=== PATIENT | female | born 1990 | race African-American/Black ===

== ENCOUNTER 2016-10-09 19:40 | Emergency (ER) | payer SELFPAY ==
[~2016-10-09] VITALS: Ht 165.1 cm; Wt 97.5 kg
[2016-10-09 20:10] LABS: BILIRUBIN,URINE NEGATIVE (NEG); GLUCOSE,URINE NEGATIVE (NEG); NITRITE,URINE NEGATIVE (NEG); PH,URINE 6.5; PROTEIN,URINE NEGATIVE (NEG-TRACE); UROBILINOGEN,URINE 0.2 mg/dL (0.2 mg/dL)
[2016-10-09 20:21] LABS: BACTERIA,URINE MODERATE /HPF (0-FEW); SQUAMOUS EPITHELIAL CELL,UR MANY /LPF
--- NOTE | 2016-10-09 21:12 | PHYS DOC ---
Past Medical History Past Medical History LMP 4 weeks ago Alcohol Use: None Adult General Chief Complaint Chief Complaint: ABDOMINAL PAIN IN HPI HPI Patient is a 26 year old female who presents with mild crampy pelvic pain past several days occasional spotting no fever nausea vomiting or diarrhea and was seen at the [facility] yesterday for a workup for same complaints. she was told labs were unremarkable that the ultrasound showed a 5 week . Review of Systems Review of Systems Constitutional: Denies fever or chills [] Eyes: Denies change in visual acuity, redness, or eye pain [] HENT: Denies nasal congestion or sore throat [] Respiratory: Denies cough or shortness of breath [] Cardiovascular: No additional information not addressed in HPI [] GI: Denies abdominal pain, nausea, vomiting, bloody stools or diarrhea [] : Denies dysuria or hematuria [] Musculoskeletal: Denies back pain or joint pain [] Integument: Denies rash or skin lesions [] Neurologic: Denies headache, focal weakness or sensory changes [] Endocrine: Denies polyuria or polydipsia [] Allergies Allergies Allergies Coded Allergies Type Severity Reaction Last Updated Verified amoxicillin Allergy Severe RASH/ HIVES 10/09/16 Yes Physical Exam Physical Exam Constitutional: Well developed, well nourished, no acute distress, non-toxic appearance. [] HENT: Normocephalic, atraumatic, bilateral external ears normal, oropharynx moist, no oral exudates, nose normal. [] Eyes: PERRLA, EOMI, conjunctiva normal, no discharge. [] Neck: Normal range of motion, no tenderness, supple, no stridor. [] Cardiovascular:Heart rate regular rhythm, no murmur [] Lungs & Thorax: Bilateral breath sounds clear to auscultation [] Abdomen: Bowel sounds normal, soft, no tenderness, no masses, no pulsatile masses. Completely nontender over the lower pelvis [] Skin: Warm, dry, no erythema, no rash. [] Back: No tenderness, no CVA tenderness. [] Extremities: No tenderness, no cyanosis, no clubbing, ROM intact, no edema. [] Neurologic: Alert and oriented X 3, normal motor function, normal sensory function, no focal deficits noted. [] Psychologic: Affect normal, judgement normal, mood normal. [] Current Patient Data Vital Signs Vital Signs Date Time Temp Pulse Resp B/P (MAP) Pulse Ox O2 Delivery O2 Flow Rate FiO2 10/09/16 19:50 98.8 96 20 173/79 (110) 100 Room Air 98.8 Lab Values Laboratory Tests Test 10/09/16 19:10 10/09/16 19:55 POC Urine HCG, Qualitative Hcg positive (Negative) Urine Collection Type Unknown Urine Color Yellow Urine Clarity Hazy Urine pH 6.5 Urine Specific [place] >=1.030 Urine Protein Negative mg/dL (NEG-TRACE) Urine Glucose (UA) Negative mg/dL (NEG) Urine Ketones (Stick) Negative mg/dL (NEG) Urine Blood Moderate (NEG) Urine Nitrite Negative (NEG) Urine Bilirubin Negative (NEG) Urine Urobilinogen Dipstick 0.2 mg/dL (0.2 mg/dL) Urine Leukocyte Esterase Trace (NEG) Urine RBC 1-2 /HPF (0-2) Urine WBC 1-4 /HPF (0-4) Urine Squamous Epithelial Cells Many /LPF Urine Bacteria Moderate /HPF (0-FEW) Urine Mucus Marked /LPF EKG EKG [] Radiology/Procedures Radiology/Procedures [] Course & Med Decision Making Course & Med Decision Making Pertinent Labs and Imaging studies reviewed. (See chart for details) Rh and quantitative hCG will be obtained tonight Outside imaging studies were obtained from [facility] which demonstrated a 5 week IUP with gestational sac and normal physiologic fluid in the pelvis and a small corpus luteal cyst in the right ovary. Rh+. [] Dragon Disclaimer Dragon Disclaimer This electronic medical record was generated, in whole or in part, using a voice recognition dictation system. Departure Departure Impression: Primary Impression: Threatened in early Additional Impression: Urinary tract infection Disposition: 01 HOME, SELF-CARE Condition: STABLE Referrals: NON,STAFF (PCP) Patient Instructions: Threatened Miscarriage, [id number], Urinary Tract Infection, [id number] Additional Instructions: Please follow-up with your personal visual and stock associate Problem Qualifiers JEWEL MCCARTY MD Oct 09, 2016 21:12
[2016-10-09 21:22] VITALS: BP 156/94
[2016-10-09] MEDS ORDERED: NITR100C62 PO (22:13)
[2016-10-09] MEDS ORDERED: ONDANSETRON ODT 4 MG TAB.RAPDIS. PO ONE (22:45)
== END 2016-10-09 22:58 | disposition home or self-care (01) ==
LOC: ER 19:40
DX: O20.0 Threatened abortion (principal); O23.41 Unspecified infection of urinary tract in pregnancy, first trimester; Z3A.01 Less than 8 weeks gestation of pregnancy; Z88.1 Allergy status to other antibiotic agents
CPT/HCPCS: 36415; 81001; 81025; 84702; 86901; 87086; 99284

== ENCOUNTER 2016-11-11 17:56 | Emergency (ER) | payer OTHER ==
[~2016-11-11] VITALS: Ht 165.1 cm; Wt 97.5 kg
[~2016-11-11 17:56] MED LIST: NITR100C62 PO
[2016-11-11 18:29] LABS: BASO # 0.1 x10^3/uL (0.0-0.2); BASO % 0 % (0-3); EOS % 0 % (0-3); HEMATOCRIT 37.3 % (36.0-47.0); HEMOGLOBIN 12.6 g/dL (12.0-15.5); LYMPH # 1.9 x10^3/uL (1.0-4.8); LYMPH % 13 % (24-48); MEAN CORPUSCULAR HEMOGLOBIN 31 pg (25-35); MEAN CORPUSCULAR HGB CONC 34 g/dL (31-37); MEAN CORPUSCULAR VOLUME 93 fL (79-100); MONO % 5 % (0-9); NEUT % 81 % (31-73); PLATELET COUNT 281 x10^3/uL (140-400); RED BLOOD COUNT 4.03 x10^6/uL (3.50-5.40); RED CELL DISTRIBUTION WIDTH 12.9 % (11.5-14.5); WHITE BLOOD COUNT 14.4 x10^3/uL (4.0-11.0)
[2016-11-11] MEDS ORDERED: METOCLOPRAMIDE HCL 10 MG/2 ML VIAL. IV ONE (18:30)
[2016-11-11] MEDS ORDERED: IV NORMAL SALINE 1000ML BAG 1,000 ML IV ONE (18:30)
[2016-11-11 18:44] LABS: CALCIUM 9.1 mg/dL (8.5-10.1); CREATININE 0.9 mg/dL (0.6-1.0); GFR 90.2; POTASSIUM 3.5 mmol/L (3.5-5.1)
[2016-11-11 18:49] LABS: ALBUMIN 3.7 g/dL (3.4-5.0); ALBUMIN/GLOBULIN RATIO 0.9 (1.0-1.7); TOTAL BILIRUBIN 0.3 mg/dL (0.2-1.0); TOTAL PROTEIN 7.8 g/dL (6.4-8.2)
--- NOTE | 2016-11-11 18:53 | PHYS DOC ---
Past Medical History Past Medical History: Anxiety, Depression, Hypertension, Migraines Past Surgical History: Appendectomy, Cholecystectomy, , Other Additional Past Surgical Histo: X2, ABDOMINAL HERNIA X2 ( CHILD) Alcohol Use: None Drug Use: Marijuana Adult General Chief Complaint Chief Complaint: ABDOMINAL PAIN IN HPI HPI Patient is a 26 year old female who presents with complaints of nausea and vomiting. Patient denied any abdominal pain except for discomfort one vomiting. Patient already had a pelvic exam today. Patient is approximately 12 weeks . Patient denies any bloody vomiting or stools. Denies any trauma. Patient states she hasn't been able to eat properly or HIDA properly secondary to vomiting. No other sick contacts. Review of Systems Review of Systems Constitutional: Denies fever or chills [] HENT: Denies nasal congestion or sore throat [] Respiratory: Denies cough or shortness of breath [] Cardiovascular: No chest pain GI: Denies abdominal pain,bloody stools or diarrhea . Yes to nausea and vomiting : Denies dysuria or hematuria . Denies vaginal bleeding or discharge Musculoskeletal: Denies back pain or joint pain [] Integument: Denies rash or skin lesions [] Neurologic: Denies headache, focal weakness or sensory changes [] All other systems reviewed and found to be negative unless otherwise Specified Current Medications Current Medications Current Medications Medications (Trade) Dose Ordered Sig/Camryn Start Time Stop Time Status Last Admin Dose Admin Metoclopramide HCl (Reglan) 10 mg 1X ONCE 11/11/16 18:30 11/11/16 18:31 DC 11/11/16 19:09 10 MG Sodium Chloride 1,000 ml @ 1,000 mls/hr 1X ONCE 11/11/16 18:30 11/11/16 19:29 DC 11/11/16 19:09 1,000 MLS/HR Allergies Allergies Allergies Coded Allergies Type Severity Reaction Last Updated Verified amoxicillin Allergy Severe RASH/ HIVES 10/09/16 Yes Physical Exam Physical Exam Constitutional: Well developed, well nourished, no acute distress, non-toxic appearance. [] HENT: Normocephalic, atraumatic, , oropharynx dry, no oral exudates, nose normal. [] Eyes: EOMI, conjunctiva normal, no discharge. [] Neck: Normal range of motion, no tenderness, trachea midline, no stridor. [] Cardiovascular:Heart rate regular rhythm, no murmur, equal pulses, normal perfusion. Lungs & Thorax: Bilateral breath sounds clear to auscultation, no tachypnea Abdomen: Bowel sounds normal, soft, no tenderness, no guarding, no rebound, no masses, no pulsatile masses. [] Skin: Warm, dry, no erythema, no rash. [] Back: No tenderness, no CVA tenderness. [] Extremities: No tenderness, no cyanosis, ROM intact, no edema. No signs of DVT Neurologic: Alert and oriented X 3, normal motor function, no focal deficits noted. [] Psychologic: Affect normal, judgement normal, mood normal. [] Current Patient Data Vital Signs Vital Signs Date Time Temp Pulse Resp B/P (MAP) Pulse Ox O2 Delivery O2 Flow Rate FiO2 11/11/16 20:00 76 120/60 (80) 99 Room Air 11/11/16 18:11 98.7 20 98.7 Lab Values Laboratory Tests Test 11/11/16 18:08 11/11/16 18:17 POC Urine HCG, Qualitative Hcg positive (Negative) White Blood Count 14.4 x10^3/uL (4.0-11.0) H Red Blood Count 4.03 x10^6/uL (3.50-5.40) Hemoglobin 12.6 g/dL (12.0-15.5) Hematocrit 37.3 % (36.0-47.0) Mean Corpuscular Volume 93 fL (79-100) Mean Corpuscular Hemoglobin 31 pg (25-35) Mean Corpuscular Hemoglobin Concent 34 g/dL (31-37) Red Cell Distribution Width 12.9 % (11.5-14.5) Platelet Count 281 x10^3/uL (140-400) Neutrophils (%) (Auto) 81 % (31-73) H Lymphocytes (%) (Auto) 13 % (24-48) L Monocytes (%) (Auto) 5 % (0-9) Eosinophils (%) (Auto) 0 % (0-3) Basophils (%) (Auto) 0 % (0-3) Neutrophils # (Auto) 11.6 x10^3uL (1.8-7.7) H Lymphocytes # (Auto) 1.9 x10^3/uL (1.0-4.8) Monocytes # (Auto) 0.8 x10^3/uL (0.0-1.1) Eosinophils # (Auto) 0.0 x10^3/uL (0.0-0.7) Basophils # (Auto) 0.1 x10^3/uL (0.0-0.2) Sodium Level 137 mmol/L (136-145) Potassium Level 3.5 mmol/L (3.5-5.1) Chloride Level 101 mmol/L (98-107) Carbon Dioxide Level 25 mmol/L (21-32) Anion Gap 11 (6-14) Blood Urea Nitrogen 12 mg/dL (7-20) Creatinine 0.9 mg/dL (0.6-1.0) Estimated GFR (Cockcroft-Gault) 90.2 BUN/Creatinine Ratio 13 (6-20) Glucose Level 103 mg/dL (70-99) H Calcium Level 9.1 mg/dL (8.5-10.1) Total Bilirubin 0.3 mg/dL (0.2-1.0) Aspartate Amino Transferase (AST) 13 U/L (15-37) L Alanine Aminotransferase (ALT) 25 U/L (14-59) Alkaline Phosphatase 44 U/L (46-116) L Total Protein 7.8 g/dL (6.4-8.2) Albumin 3.7 g/dL (3.4-5.0) Albumin/Globulin Ratio 0.9 (1.0-1.7) L Laboratory Tests 11/11/16 18:17 Laboratory Tests 11/11/16 18:17 EKG EKG 1847 69 normal sinus rhythm no STEMI[] Radiology/Procedures Radiology/Procedures [] Course & Med Decision Making Course & Med Decision Making Pertinent Labs and Imaging studies reviewed. (See chart for details) and results discussed with the patient. 2101 patient reevaluated and reexamined. Patient states she feels much better and requests discharge home. Vital signs are unremarkable. Patient has not vomited in the ED. I gave the patient strict instructions on how to use Zofran but I will also provide her with a prescription for Reglan [] Dragon Disclaimer Dragon Disclaimer This electronic medical record was generated, in whole or in part, using a voice recognition dictation system. Departure Departure Impression: Primary Impression: Dehydration Additional Impression: Vomiting as reason for care in Disposition: HOME, SELF-CARE Condition: IMPROVED Referrals: NO PCP (PCP) Patient Instructions: ABCs of , Dehydration, Adult, Nausea and Vomiting Additional Instructions: Please follow-up with your DONOR TECHNICIAN and PCP for recheck and reevaluation in 3-5 days Problem Qualifiers Michael LEMA MD Nov 11, 2016 18:53
[2016-11-11 21:00] VITALS: BP 128/68
--- NOTE | 2016-11-12 07:16 | EKG ---
[facility] [address] [place] [address] Test Date: 2016-11-11 Test Time: 18:46:03 Pat Name: AUGUSTUS CARTWRIGHT Department: Room: Gender: F Analysis Consultant: : 1990 Requested By: Michael LEMA Order Number: [id number] Reading MD: Measurements Intervals [place] Rate: 69 P: 53 CO: 132 QRS: 28 QRSD: 94 T: 29 QT: 382 QTc: 411 Interpretive Statements SINUS RHYTHM QRS(T) CONTOUR ABNORMALITY CONSIDER ANTEROLATERAL MYOCARDIAL DAMAGE RI6.01 Unconfirmed report No previous ECG available for comparison
== END 2016-11-11 22:00 | disposition home or self-care (01) ==
LOC: ER 17:56
DX: O21.9 Vomiting of pregnancy, unspecified (principal); O26.891 Other specified pregnancy related conditions, first trimester; E86.0 Dehydration; O16.1 Unspecified maternal hypertension, first trimester; F12.10 Cannabis abuse, uncomplicated; Z88.1 Allergy status to other antibiotic agents; Z3A.12 12 weeks gestation of pregnancy
CPT/HCPCS: 36415; 80053; 81025; 85025; 93005; 96361; 96374; 99285; J2765; J7030

== ENCOUNTER 2017-05-06 23:43 | Observation (INO) | payer OTHER ==
[2017-05-07] MEDS ORDERED: ACETAMINOPHEN 325 MG TABLET. PO
[2017-05-07] MEDS ORDERED: ONDANSETRON PF 4 MG/2 ML VIAL. IV
[2017-05-07] MEDS ORDERED: MAG HYDROX/ALUMINUM HYD/SIMETH 30 ML ORAL.SUSP PO
[2017-05-07 01:16] LABS: BILIRUBIN,URINE NEGATIVE (NEG); CLARITY,URINE CLOUDY; COLOR,URINE YELLOW; GLUCOSE,URINE NEGATIVE (NEG); NITRITE,URINE NEGATIVE (NEG); PROTEIN,URINE 30 mg/dL (NEG-TRACE); UROBILINOGEN,URINE 0.2 mg/dL (0.2 mg/dL)
[2017-05-07 01:25] LABS: AMORPHOUS SEDIMENT,UR PRESENT /HPF; BACTERIA,URINE MODERATE /HPF (0-FEW); RBC,URINE 0 /HPF (0-2); SQUAMOUS EPITHELIAL CELL,UR MOD /LPF
[2017-05-07 01:27] LABS: AMPHETAMINE/METHAMPHETAMINE NEG (NEG); BARBITURATES NEG (NEG); BENZODIAZEPINES POS (NEG); CANNABINOIDS POS (NEG); COCAINE NEG (NEG); ETHANOL, URINE NEG (NEG); METHADONE NEG (NEG); OPIATES POS (NEG); PHENCYCLIDINE NEG (NEG)
[2017-05-07] MEDS: IV RINGERS,LACTATED 1000ML 1,000 ML IV ×2 (02:44→05:22)
[2017-05-07] MEDS: ONDANSETRON PF 4 MG/2 ML VIAL. IV (02:58)
[2017-05-07] MEDS ORDERED: IV RINGERS,LACTATED 1000ML 1,000 ML IV (03:00)
== END 2017-05-07 10:43 | disposition home or self-care (01) ==
LOC: 3 SO LND 23:43
DX: O62.9 Abnormality of forces of labor, unspecified (principal); Z3A.35 35 weeks gestation of pregnancy
CPT/HCPCS: 80307; 81001; 87086; 96361; 96374; G0378; G0379; J2405; J7120

== ENCOUNTER 2017-06-08 10:49 | Inpatient (IN) | payer OTHER ==
[2017-06-08 11:21] LABS: BILIRUBIN,URINE NEGATIVE (NEG); CLARITY,URINE CLEAR; COLOR,URINE YELLOW; GLUCOSE,URINE NEGATIVE (NEG); NITRITE,URINE NEGATIVE (NEG); PH,URINE 6.5; PROTEIN,URINE 30 mg/dL (NEG-TRACE); UROBILINOGEN,URINE 0.2 mg/dL (0.2 mg/dL)
[2017-06-08 11:28] LABS: BARBITURATES NEG (NEG); BENZODIAZEPINES POS (NEG); CANNABINOIDS POS (NEG); COCAINE NEG (NEG); METHADONE NEG (NEG); OPIATES POS (NEG); PHENCYCLIDINE NEG (NEG)
[2017-06-08 11:29] LABS: AMPHETAMINE/METHAMPHETAMINE NEG (NEG); ETHANOL, URINE NEG (NEG)
[2017-06-08 11:53] LABS: ADD MAN DIFF? NO
[2017-06-08 12:09] LABS: BASO # 0.1 x10^3/uL (0.0-0.2); BASO % 1 % (0-3); EOS % 0 % (0-3); HEMOGLOBIN 11.4 g/dL (12.0-15.5); LYMPH # 2.3 x10^3/uL (1.0-4.8); LYMPH % 19 % (24-48); MEAN CORPUSCULAR HEMOGLOBIN 32 pg (25-35); MEAN CORPUSCULAR HGB CONC 35 g/dL (31-37); MEAN CORPUSCULAR VOLUME 92 fL (79-100); MONO # 0.8 x10^3/uL (0.0-1.1); MONO % 7 % (0-9); NEUT # 9.1 x10^3uL (1.8-7.7); NEUT % 74 % (31-73); PLATELET COUNT 238 x10^3/uL (140-400); RED CELL DISTRIBUTION WIDTH 14.3 % (11.5-14.5); WHITE BLOOD COUNT 12.4 x10^3/uL (4.0-11.0)
[2017-06-08] MEDS: CLINDAMYCIN 900MG PREMIX 50 ML IV (12:37)
[2017-06-08] MEDS: IV RINGERS,LACTATED 1000ML 1,000 ML IV ×2 (12:37→20:48)
[2017-06-08] MEDS: CITRIC ACID/SODIUM CITRATE 30 ML SOLUTION. PO (12:49)
[2017-06-08] MEDS ORDERED: ONDANSETRON PF 4 MG/2 ML VIAL. (12:56)
[2017-06-08] MEDS ORDERED: PHENYLEPHRINE in 0.9% NACL PF 1 MG/10 ML SYRINGE. IV ×2 (12:56→13:47)
[2017-06-08] MEDS ORDERED: OXYTOCIN 10 UNIT/ML VIAL. ×2 (12:56→14:06)
[2017-06-08] MEDS ORDERED: DEXAMETHASONE SOD PHOS 20 MG/5 ML VIAL. (12:56)
[2017-06-08] MEDS ORDERED: FAMOTIDINE 20 MG/2 ML VIAL (12:56)
[2017-06-08] MEDS ORDERED: METOCLOPRAMIDE HCL 10 MG/2 ML VIAL. (12:56)
[2017-06-08] MEDS ORDERED: MORPHINE PF 5 MG/10 ML VIAL. (12:56)
[2017-06-08] MEDS ORDERED: fentaNYL PF VIAL 100 MCG/2 ML VIAL (12:57)
[2017-06-08] MEDS ORDERED: miSOPROStol 200MCG TAB 200 MCG TABLET (13:52)
[2017-06-08] MEDS ORDERED: diphenhydrAMINE ORAL ELIXIR 12.5 MG/5 ML ML PO (14:45)
[2017-06-08] MEDS ORDERED: ZOLPIDEM 5 MG TABLET. PO (14:45)
[2017-06-08] MEDS ORDERED: 0.9 % SODIUM CHLORIDE 10 ML DISP.SYRIN. IV (14:45)
[2017-06-08] MEDS ORDERED: OXYTOCIN 30 UNIT/500 ML PREMIX 500 ML IV (14:45)
[2017-06-08] MEDS ORDERED: ONDANSETRON PF 4 MG/2 ML VIAL. IV (14:45)
[2017-06-08] MEDS ORDERED: MAG HYDROX/ALUMINUM HYD/SIMETH 30 ML ORAL.SUSP PO (14:45)
[2017-06-08] MEDS: KETOROLAC 30 MG/ML INJ. IV (15:26)
[2017-06-08] MEDS: miSOPROStol 200MCG TAB 200 MCG TABLET PR (15:26)
[2017-06-08] MEDS: FERROUS SULFATE 325 MG TABLET. PO (17:00)
[2017-06-09] MEDS: KETOROLAC 30 MG/ML INJ. IV (05:55)
[2017-06-09 06:15] LABS: BASO % 0 % (0-3); EOS % 0 % (0-3); HEMATOCRIT 25.4 % (36.0-47.0); HEMOGLOBIN 8.6 g/dL (12.0-15.5); LYMPH # 1.5 x10^3/uL (1.0-4.8); LYMPH % 9 % (24-48); MEAN CORPUSCULAR HEMOGLOBIN 31 pg (25-35); MEAN CORPUSCULAR HGB CONC 34 g/dL (31-37); MEAN CORPUSCULAR VOLUME 92 fL (79-100); MONO # 1.3 x10^3/uL (0.0-1.1); MONO % 8 % (0-9); NEUT # 13.9 x10^3uL (1.8-7.7); NEUT % 83 % (31-73); PLATELET COUNT 208 x10^3/uL (140-400); RED BLOOD COUNT 2.77 x10^6/uL (3.50-5.40); RED CELL DISTRIBUTION WIDTH 14.1 % (11.5-14.5); WHITE BLOOD COUNT 16.8 x10^3/uL (4.0-11.0)
[2017-06-09 06:33] LABS: ADD MAN DIFF? YES
[2017-06-09 07:50] LABS: RPR Negative (Non Reactive)
[2017-06-09] MEDS ORDERED: BENZOCAINE 20% TOPICAL AEROSOL SPRAY 57GM CAN. TP (08:30)
[2017-06-09] MEDS: FERROUS SULFATE 325 MG TABLET. PO ×2 (08:40→18:28)
[2017-06-09] MEDS: DOCUSATE SODIUM 100 MG CAPSULE. PO (08:40)
[2017-06-09] MEDS: oxyCODONE/APAP 5/325 1 TAB TABLET PO ×4 (08:41→21:57)
[2017-06-09 11:52] LABS: % BANDS 4 % (0-9); % LYMPHS 8 % (24-48); % MONOS 9 % (0-10); % SEGS 79 % (35-66); PLT ESTIMATE ADEQUATE (ADEQUATE)
[2017-06-09] MEDS: SIMETHICONE 80 MG TAB.CHEW PO (13:06)
[2017-06-09] MEDS: IBUPROFEN 800 MG TABLET. PO (14:31)
[2017-06-10] MEDS: oxyCODONE/APAP 5/325 1 TAB TABLET PO ×4 (03:35→20:18)
[2017-06-10] MEDS: IBUPROFEN 800 MG TABLET. PO ×2 (08:11→20:18)
[2017-06-10] MEDS: FERROUS SULFATE 325 MG TABLET. PO ×2 (08:12→15:28)
[2017-06-10] MEDS: DOCUSATE SODIUM 100 MG CAPSULE. PO ×2 (08:12→15:28)
[2017-06-10] MEDS: SIMETHICONE 80 MG TAB.CHEW PO (09:42)
[2017-06-10] MEDS: DIPHTH,PERTUSS(ACELL),TET TOX 0.5 ML DISP.SYRIN. VAX IM (15:31)
[2017-06-11] MEDS: IBUPROFEN 800 MG TABLET. PO ×3 (04:25→20:56)
[2017-06-11] MEDS: oxyCODONE/APAP 5/325 1 TAB TABLET PO ×4 (04:26→20:57)
[2017-06-11] MEDS: DOCUSATE SODIUM 100 MG CAPSULE. PO ×2 (09:29→20:57)
[2017-06-11] MEDS: MAGNESIUM HYDROXIDE 2,400 MG/30 ML ORAL.SUSP. PO (13:34)
[2017-06-11] MEDS: BISACODYL 10 MG SUPP.RECT. PR (13:34)
[2017-06-11] MEDS: FERROUS SULFATE 325 MG TABLET. PO (20:58)
[2017-06-12] MEDS: MAGNESIUM HYDROXIDE 2,400 MG/30 ML ORAL.SUSP. PO (05:58)
[2017-06-12] MEDS: IBUPROFEN 800 MG TABLET. PO (05:58)
[2017-06-12] MEDS: oxyCODONE/APAP 5/325 1 TAB TABLET PO ×2 (05:59→13:23)
[2017-06-12] MEDS: BISACODYL 10 MG SUPP.RECT. PR (09:35)
[2017-06-12] MEDS: DOCUSATE SODIUM 100 MG CAPSULE. PO (09:35)
[2017-06-12] MEDS: FERROUS SULFATE 325 MG TABLET. PO (09:35)
[2017-06-12] MEDS ORDERED: MAGNESIUM CITRATE 296 ML SOLUTION. PO (12:45)
[2017-06-12] MEDS: SIMETHICONE 80 MG TAB.CHEW PO (13:24)
[2017-06-12] MEDS: DOCUSATE SODIUM 283 MG/5 ML ENEMA. PR (13:24)
== END 2017-06-12 17:45 | disposition home or self-care (01) | DRG 765 ==
LOC: 3 SO LND 10:49 → 3 NORTH 17:00 → 3 SO LND 06-09 16:11 → 3 NORTH 06-09 16:15
PROC: 0UB70ZZ Excision of Bilateral Fallopian Tubes, Open Approach (ICD-10-PCS; principal; 2017-06-08)
PROC: 10D00Z1 Extraction of Products of Conception, Low, Open Approach (ICD-10-PCS; 2017-06-08)
DX: O34.211 Maternal care for low transverse scar from previous cesarean delivery (principal); Z68.42 Body mass index [BMI] 45.0-49.9, adult; E66.9 Obesity, unspecified; Z37.0 Single live birth; O99.214 Obesity complicating childbirth; Z3A.40 40 weeks gestation of pregnancy; Z30.2 Encounter for sterilization; Z88.8 Allergy status to other drugs, medicaments and biological substances
CPT/HCPCS: 36415; 80307; 81003; 85007; 85025; 86593; 86850; 86900; 86901; 87071; 87075; 87205; 90715; C1781; J1100; J1885; J2270; J2370; J2405; J2590; J2765; J3010; J3490; J7120; Q0111; S0028

== ENCOUNTER 2019-01-10 16:34 | Emergency (ER) | payer OTHER ==
[~2019-01-10] VITALS: Ht 167.6 cm; Wt 131.5 kg
[2019-01-10] MEDS ORDERED: DEXAMETHASONE 4 MG TABLET PO STA (17:04)
--- NOTE | 2019-01-10 17:09 | PHYS DOC ---
Past Medical History Past Medical History: Anxiety, Depression, Hypertension, Migraines Past Surgical History: Appendectomy, Cholecystectomy, , Other Additional Past Surgical Histo: X2, ABDOMINAL HERNIA X2 ( CHILD) Alcohol Use: None Drug Use: Marijuana Adult General Chief Complaint Chief Complaint: HEADACHE HPI HPI Patient is a 28 year old female who presents with symptoms. The patient has sore throat, cough, headache, nausea, vomiting that started 3 days ago. She states she is not keeping fluids at home. She rates her pain as 10 out of 10 in severity. The patient also has expiratory wheezing. Review of Systems Review of Systems Constitutional: Reports fever or chills [] Eyes: Denies change in visual acuity, redness, or eye pain [] HENT: Denies nasal congestion or sore throat [] Respiratory: Reports cough and shortness of breath [] Cardiovascular: No additional information not addressed in HPI [] GI: Reports nausea, and vomiting, Denies abdominal pain,bloody stools or diarrhea [] : Denies dysuria or hematuria [] Musculoskeletal: Denies back pain or joint pain [] Integument: Denies rash or skin lesions [] Neurologic: Denies headache, focal weakness or sensory changes [] Endocrine: Denies polyuria or polydipsia [] Complete systems were reviewed and found to be within normal limits, except as documented in this note. Current Medications Current Medications Current Medications Medications (Trade) Dose Ordered Sig/Camryn Start Time Stop Time Status Last Admin Dose Admin Acetaminophen (Tylenol) 1,000 mg 1X ONCE 01/10/19 19:00 01/10/19 19:01 DC 01/10/19 19:06 1,000 MG Albuterol/ Ipratropium (Duoneb) 3 ml 1X ONCE 01/10/19 17:15 01/10/19 17:16 DC 01/10/19 17:32 3 ML Ceftriaxone Sodium (Rocephin) 1 gm 1X ONCE 01/10/19 19:00 01/10/19 19:01 DC 01/10/19 19:07 1 GM Dexamethasone (Decadron) 10 mg 1X STAT 01/10/19 17:04 01/10/19 17:06 DC 01/10/19 19:14 10 MG Ketorolac Tromethamine (Toradol 15mg Vial) 10 mg 1X ONCE 01/10/19 19:00 01/10/19 19:01 DC 01/10/19 19:07 10 MG Ondansetron HCl (Zofran) 4 mg 1X ONCE 01/10/19 17:15 01/10/19 17:16 DC 01/10/19 19:07 4 MG Potassium Chloride (Klor-Con) 60 meq 1X ONCE 01/10/19 19:00 01/10/19 19:01 DC 01/10/19 19:07 60 MEQ Sodium Chloride 1,000 ml @ 1,000 mls/hr 1X STAT 01/10/19 18:47 01/10/19 19:46 Allergies Allergies Allergies Coded Allergies Type Severity Reaction Last Updated Verified amoxicillin Allergy Severe RASH/ HIVES 10/09/16 Yes Physical Exam Physical Exam Constitutional: Well developed, well nourished, no acute distress, non-toxic appearance. [] HENT: Normocephalic, atraumatic, bilateral external ears normal, oropharynx moist, no oral exudates, nose normal. [] Eyes: PERRLA, EOMI, conjunctiva normal, no discharge. [] Neck: Normal range of motion, no tenderness, supple, no stridor. [] Cardiovascular:Heart rate regular rhythm, no murmur [] Lungs & Thorax: Bilateral breath sounds have diffused expiratory wheezes throughout. Abdomen: Bowel sounds normal, soft, no tenderness, no masses, no pulsatile masses. [] Skin: Warm, dry, no erythema, no rash. [] Back: No tenderness, no CVA tenderness. [] Extremities: No tenderness, no cyanosis, no clubbing, ROM intact, no edema. [] Neurologic: Alert and oriented X 3, normal motor function, normal sensory function, no focal deficits noted. [] Psychologic: Affect normal, judgement normal, mood normal. [] Current Patient Data Vital Signs Vital Signs Date Time Temp Pulse Resp B/P (MAP) Pulse Ox O2 Delivery O2 Flow Rate FiO2 01/10/19 17:49 103.0 110 144/82 (102) 95 Room Air 103.0 Lab Values Laboratory Tests Test 01/10/19 16:56 01/10/19 17:02 01/10/19 17:46 01/10/19 17:55 Urine Color [place] Urine Clarity Clear Urine pH 6.0 Urine Specific [place] >=1.030 Urine Protein 30 mg/dL (NEG-TRACE) Urine Glucose (UA) Negative mg/dL (NEG) Urine Ketones (Stick) Negative mg/dL (NEG) Urine Blood Large (NEG) Urine Nitrite Positive (NEG) Urine Bilirubin Negative (NEG) Urine Urobilinogen Dipstick 1.0 mg/dL (0.2 mg/dL) Urine Leukocyte Esterase Negative (NEG) Urine RBC Tntc /HPF (0-2) Urine WBC 5-10 /HPF (0-4) Urine Squamous Epithelial Cells Occ /LPF Urine Bacteria Many /HPF (0-FEW) POC Urine HCG, Qualitative Hcg negative (Negative) Influenza Type A Antigen Negative (NEGATIVE) Influenza Type B Antigen Positive (NEGATIVE) White Blood Count 5.5 x10^3/uL (4.0-11.0) Red Blood Count 3.88 x10^6/uL (3.50-5.40) Hemoglobin 10.9 g/dL (12.0-15.5) L Hematocrit 32.7 % (36.0-47.0) L Mean Corpuscular Volume 84 fL (79-100) Mean Corpuscular Hemoglobin 28 pg (25-35) Mean Corpuscular Hemoglobin Concent 33 g/dL (31-37) Red Cell Distribution Width 14.3 % (11.5-14.5) Platelet Count 177 x10^3/uL (140-400) Neutrophils (%) (Auto) 77 % (31-73) H Lymphocytes (%) (Auto) 13 % (24-48) L Monocytes (%) (Auto) 10 % (0-9) H Eosinophils (%) (Auto) 0 % (0-3) Basophils (%) (Auto) 0 % (0-3) Neutrophils # (Auto) 4.3 x10^3/uL (1.8-7.7) Lymphocytes # (Auto) 0.7 x10^3/uL (1.0-4.8) L Monocytes # (Auto) 0.5 x10^3/uL (0.0-1.1) Eosinophils # (Auto) 0.0 x10^3/uL (0.0-0.7) Basophils # (Auto) 0.0 x10^3/uL (0.0-0.2) Sodium Level 141 mmol/L (136-145) Potassium Level 2.9 mmol/L (3.5-5.1) *L Chloride Level 104 mmol/L (98-107) Carbon Dioxide Level 26 mmol/L (21-32) Anion Gap 11 (6-14) Blood Urea Nitrogen 5 mg/dL (7-20) L Creatinine 0.9 mg/dL (0.6-1.0) Estimated GFR (Cockcroft-Gault) 89.0 BUN/Creatinine Ratio 6 (6-20) Glucose Level 129 mg/dL (70-99) H Lactic Acid Level 2.1 mmol/L (0.4-2.0) H Calcium Level 8.3 mg/dL (8.5-10.1) L Magnesium Level 1.3 mg/dL (1.8-2.4) L Total Bilirubin 0.3 mg/dL (0.2-1.0) Aspartate Amino Transferase (AST) 48 U/L (15-37) H Alanine Aminotransferase (ALT) 45 U/L (14-59) Alkaline Phosphatase 75 U/L (46-116) Total Protein 7.3 g/dL (6.4-8.2) Albumin 3.2 g/dL (3.4-5.0) L Albumin/Globulin Ratio 0.8 (1.0-1.7) L Procalcitonin < 0.10 ng/mL (0.00-0.10) Laboratory Tests 01/10/19 17:55 Laboratory Tests 01/10/19 17:55 EKG EKG [] Radiology/Procedures Radiology/Procedures [] Course & Med Decision Making Course & Med Decision Making Pertinent Labs and Imaging studies reviewed. (See chart for details) Will get flu, labs, chest x-ray, and give supportive care. Flu is positive. Magnesium is 1.3 (will replace magnesium), potassium is 2.9 (gave 60 meq of potassium). Urine shows nitrates (will give rocephin). Lactic is 2.1 (likely from dehydration). Patient feels better after treatment. Will d/c home with Prednisone, Zofran, and Keflex. I gave return precautions the patient to return if she starts feeling worse or is unable to keep fluids down. Dragon Disclaimer Dragon Disclaimer This electronic medical record was generated, in whole or in part, using a voice recognition dictation system. Departure Departure Impression: Primary Impression: Influenza B Additional Impressions: Influenzal bronchitis Hypomagnesemia Urinary tract infection Hypokalemia Disposition: 01 HOME, SELF-CARE Condition: STABLE Referrals: MARYAM PATEL MD (PCP) Patient Instructions: Hypokalemia, Hypomagnesemia, Urinary Tract Infection Additional Instructions: Thank you for visiting [facility]. We appreciate you trusting us with your care. If any additional problems come up don't hesitate to return to visit us. Please follow up with your primary care provider so they can plan additional care if needed and know about the problem that you had. If symptoms worsen come back to the Emergency Department. Any concerning symptoms that start such as chest pain, shortness of air, weakness or numbness on one side of the body, running high fevers or any other concerning symptoms return to the ER. Please fill your medications at any pharmacy and follow the prescription instructions. You have been prescribed an antibiotic today to help fight your infection. Please take all of the antibiotic as directed. If after 48 hours the infection is not improving, please return for more care. If the infection worsens, return to ER for additional care. Please return to the ER if you're unable to keep fluids home at home. Scripts Prednisone (PREDNISONE) 20 Mg Tablet 2 TAB PO DAILY for 5 Days, #10 TAB Prov: SHIRAZ TAMAYO APRN 01/10/19 Ondansetron (ONDANSETRON ODT) 4 Mg Tab.rapdis 1 TAB PO PRN Q6-8HRS PRN for NAUSEA, #16 TAB Prov: SHIRAZ TAMAYO APRN 01/10/19 Cephalexin (KEFLEX) 500 Mg Capsule 1 CAP PO BID for 7 Days, #14 CAP 0 Refills Prov: SHIRAZ TAMAYO APRN 01/10/19 Problem Qualifiers Additional Impressions: Urinary tract infection Urinary tract infection type: acute cystitis Hematuria presence: with hematuria Qualified Codes: N30.01 - Acute cystitis with hematuria SHIRAZ TAMAYO APRN Jan 10, 2019 17:08
[2019-01-10] MEDS ORDERED: IV NORMAL SALINE 1000ML BAG 1,000 ML IV ONE (17:15)
[2019-01-10] MEDS ORDERED: ONDANSETRON PF 4 MG/2 ML VIAL. IV ONE (17:15)
[2019-01-10] MEDS ORDERED: IPRATRPIUM/ALBUTEROL 0.5/2.5MG 3 ML NEBU. NEB ONE (17:15)
[2019-01-10 18:13] LABS: BASO % 0 % (0-3); EOS % 0 % (0-3); HEMATOCRIT 32.7 % (36.0-47.0); HEMOGLOBIN 10.9 g/dL (12.0-15.5); LYMPH # 0.7 x10^3/uL (1.0-4.8); LYMPH % 13 % (24-48); MEAN CORPUSCULAR HEMOGLOBIN 28 pg (25-35); MEAN CORPUSCULAR HGB CONC 33 g/dL (31-37); MEAN CORPUSCULAR VOLUME 84 fL (79-100); MONO # 0.5 x10^3/uL (0.0-1.1); MONO % 10 % (0-9); NEUT # 4.3 x10^3/uL (1.8-7.7); NEUT % 77 % (31-73); PLATELET COUNT 177 x10^3/uL (140-400); RED BLOOD COUNT 3.88 x10^6/uL (3.50-5.40); RED CELL DISTRIBUTION WIDTH 14.3 % (11.5-14.5); WHITE BLOOD COUNT 5.5 x10^3/uL (4.0-11.0)
[2019-01-10 18:14] LABS: BILIRUBIN,URINE NEGATIVE (NEG); CLARITY,URINE CLEAR; COLOR,URINE AMBER; NITRITE,URINE POSITIVE (NEG); PROTEIN,URINE 30 mg/dL (NEG-TRACE)
[2019-01-10 18:26] LABS: BACTERIA,URINE MANY /HPF (0-FEW); RBC,URINE TNTC /HPF (0-2); SQUAMOUS EPITHELIAL CELL,UR OCC /LPF
[2019-01-10 18:27] LABS: ALBUMIN 3.2 g/dL (3.4-5.0); ALBUMIN/GLOBULIN RATIO 0.8 (1.0-1.7); CALCIUM 8.3 mg/dL (8.5-10.1); CREATININE 0.9 mg/dL (0.6-1.0); MAGNESIUM 1.3 mg/dL (1.8-2.4); TOTAL BILIRUBIN 0.3 mg/dL (0.2-1.0); TOTAL PROTEIN 7.3 g/dL (6.4-8.2)
[2019-01-10 18:33] LABS: POTASSIUM 2.9 mmol/L (3.5-5.1)
[2019-01-10 18:39] LABS: INFLUENZA A PATIENT NEGATIVE (NEGATIVE)
[2019-01-10 18:40] LABS: INFLUENZA B PATIENT POSITIVE (NEGATIVE)
[2019-01-10] MEDS ORDERED: IV NORMAL SALINE 1000ML BAG 1,000 ML IV STA (18:47)
[2019-01-10] MEDS ORDERED: KETOROLAC 15 MG/ML VIAL. IV ONE (19:00)
[2019-01-10] MEDS ORDERED: ACETAMINOPHEN 500 MG TABLET PO ONE (19:00)
[2019-01-10] MEDS ORDERED: POTASSIUM CHLORIDE 20 MEQ TABLET.ER. PO ONE (19:00)
[2019-01-10] MEDS ORDERED: cefTRIAXone IV Push 1 GM VIAL. IVP ONE (19:00)
[2019-01-10] MEDS ORDERED: MAGNESIUM SULFATE 1GM 100 ML IV STA (19:24)
[2019-01-10] MEDS ORDERED: ONDA4TAB12 PO (19:33)
[2019-01-10] MEDS ORDERED: CEPH-264 PO (19:33)
--- NOTE | 2019-01-10 19:36 | RAD ---
PA and lateral chest radiograph 01/10/2019 CLINICAL HISTORY: Cough and fever. PA and lateral digital radiographs of the chest were obtained. Comparison study is dated 01/27/2016. The cardiac and mediastinal silhouettes are within normal limits in size and configuration. No acute pulmonary infiltrate is seen. No pleural effusion or pneumothorax is noted. The osseous structures are grossly intact. IMPRESSION: No acute abnormality is seen. Electronically signed by: López Grimm MD (01/10/2019 7:33 PM) [facility]
[2019-01-10] MEDS ORDERED: PRED20TA PO (19:45)
[2019-01-10 20:09] VITALS: BP 173/81
== END 2019-01-10 20:32 | disposition home or self-care (01) ==
LOC: ER 16:34
DX: J10.1 Influenza due to other identified influenza virus with other respiratory manifestations (principal); J40 Bronchitis, not specified as acute or chronic; N30.01 Acute cystitis with hematuria; E87.6 Hypokalemia; E83.42 Hypomagnesemia; G43.909 Migraine, unspecified, not intractable, without status migrainosus; I10 Essential (primary) hypertension; F41.9 Anxiety disorder, unspecified; F32.9 Major depressive disorder, single episode, unspecified; Z90.89 Acquired absence of other organs; Z90.49 Acquired absence of other specified parts of digestive tract; Z98.890 Other specified postprocedural states; Z88.1 Allergy status to other antibiotic agents
CPT/HCPCS: 36415; 71046; 80053; 81001; 81025; 83605; 83735; 84145; 85025; 87086; 87804; 94640; 96365; 96375; 99285; J0696; J1885; J2405; J3475; J7030; J7620; J8540; 87186

== ENCOUNTER 2020-05-22 23:20 | Emergency (ER) | payer SELFPAY ==
[~2020-05-22] VITALS: Ht 167.6 cm; Wt 159.1 kg
[~2020-05-22 23:20] MED LIST changes: +CEPH-264 PO; +ONDA4TAB12 PO; +PRED20TA PO
[2020-05-23] VITALS: BP 139/83
--- NOTE | 2020-05-23 00:09 | EKG ---
[facility] [address] [place] [address] Test Date: 2020-05-22 Test Time: 23:41:27 Pat Name: AUGUSTUS CARTWRIGHT Department: Room: Gender: F Transplant Surgeon: : 1990 Requested By: JENNIFER KENDALL Order Number: [id number] Reading MD: Measurements Intervals [place] Rate: 76 P: 39 [place]: 130 QRS: 23 QRSD: 94 T: 18 QT: 354 QTc: 402 Interpretive Statements SINUS RHYTHM NO SPECIFIC ECG ABNORMALITIES RI6.01 No previous ECG available for comparison
[2020-05-23 00:48] LABS: BASO # 0.1 x10^3/uL (0.0-0.2); BASO % 1 % (0-3); EOS % 1 % (0-3); HEMATOCRIT 34.2 % (36.0-47.0); HEMOGLOBIN 11.1 g/dL (12.0-15.5); LYMPH # 1.8 x10^3/uL (1.0-4.8); LYMPH % 17 % (24-48); MEAN CORPUSCULAR HEMOGLOBIN 26 pg (25-35); MEAN CORPUSCULAR HGB CONC 33 g/dL (31-37); MEAN CORPUSCULAR VOLUME 81 fL (79-100); MONO # 0.6 x10^3/uL (0.0-1.1); MONO % 6 % (0-9); NEUT % 76 % (31-73); PLATELET COUNT 363 x10^3/uL (140-400); RED BLOOD COUNT 4.23 x10^6/uL (3.50-5.40); RED CELL DISTRIBUTION WIDTH 15.5 % (11.5-14.5); WHITE BLOOD COUNT 10.5 x10^3/uL (4.0-11.0)
--- NOTE | 2020-05-23 00:53 | RAD ---
XR CHEST 1V History: Reason: palpitations / Spl. Instructions: / History: Comparison: January 10, 2019 Findings: No consolidation or pleural effusion. Normal heart size. No pneumothorax. Impression: 1. No acute cardiopulmonary process. Electronically signed by: Yobani Strauss DO (05/23/2020 12:50 AM) [facility] [place]
[2020-05-23 01:07] LABS: CREATININE 0.8 mg/dL (0.6-1.0); GFR 100.6; POTASSIUM 4.2 mmol/L (3.5-5.1)
[2020-05-23 01:08] LABS: PREG TEST PT QUAL NEGATIVE (NEG)
[2020-05-23 01:13] LABS: ALBUMIN 3.5 g/dL (3.4-5.0); ALBUMIN/GLOBULIN RATIO 0.7 (1.0-1.7); MAGNESIUM 1.9 mg/dL (1.8-2.4); TOTAL BILIRUBIN 0.3 mg/dL (0.2-1.0); TOTAL PROTEIN 8.4 g/dL (6.4-8.2)
--- NOTE | 2020-05-23 01:27 | PHYS DOC ---
Past Medical History Past Medical History: Other Additional Past Medical Histor: palpitations Past Surgical History: No Surgical History Additional Past Surgical Histo: X2, ABDOMINAL HERNIA X2 ( CHILD) Smoking Status: Never Smoker Alcohol Use: None Drug Use: Marijuana General Adult EDM: Chief Complaint: Palpitations HPI: HPI: 30-year-old obese female presents the ED with complaints of palpitations for the past year, states for the past 2 days she is having nonradiating, intermittent "stinging chest pain, heart is beating weird," every other hour. Reports she has been addicted to opioids after tramadol was prescribed for back pain. [facility] she has been sniffing heroin for the past 7 months after failed Suboxone use. Also injects heroin into both antecubital fossas and randomly into her chest wall. Denies any cocaine or methamphetamine abuse. No associated syncope. Takes no routine medications. Has no primary care physician. No personal or family history of AAA, AAD, CTD (ehlos danlos or marfans), cardiac arrhythmias (need for AICD), CAD, sudden or unexplainable (under 50 years of age or with exertion), or clotting disorders. Review of Systems: Review of Systems: Constitutional: Denies fever or chills. [] Eyes: Denies change in visual acuity. [] HENT: Denies nasal congestion or sore throat. [] Respiratory: Denies cough or shortness of breath. [] Cardiovascular: Denies hemoptysis, syncope or edema. [] GI: Denies abdominal pain, nausea, vomiting, bloody stools or diarrhea. [] : Denies dysuria or vaginal bleeding Musculoskeletal: Denies back pain or joint pain. [] Integument: Denies rash or diaphoresis Neurologic: Denies headache, focal weakness or sensory changes. [] Endocrine: Denies polyuria or polydipsia. [] Lymphatic: Denies swollen glands. [] Psychiatric: Denies depression or anxiety. [] Heart Score: C/O Chest Pain: Yes HEART Score for Chest Pain: HEART Score for Chest Pain Response (Comments) Value History Slighlty/Non-Suspicious 0 ECG Normal 0 Age < 45 0 Risk Factors 1 or 2 Risk Factors 1 Troponin < Normal Limit 0 Total 1 Risk Factors: Risk Factors: DM, Current or recent (<one month) smoker, HTN, HLP, family history of CAD, obesity. Risk Scores: Score 0 - 3: 2.5% MACE over next 6 weeks - Discharge Home Score 4 - 6: 20.3% MACE over next 6 weeks - Admit for Clinical Observation Score 7 - 10: 72.7% MACE over next 6 weeks - Early Invasive Strategies Allergies: Allergies: Allergies Coded Allergies Type Severity Reaction Last Updated Verified amoxicillin Allergy Severe RASH/ HIVES 10/09/16 Yes Physical Exam: PE: Constitutional: Well developed, well nourished, no acute distress, non-toxic appearance, obese HENT: Normocephalic, atraumatic, Eyes: EOMI, conjunctiva normal, no discharge. Neck: Normal range of motion, supple, Cardiovascular: S1/2 present, regular rhythm, chest wall with no recent scabs/skin popping lesions or erythema/rash Lungs & Thorax: Speaking in full sentences, bilateral equal chest rise, no tachypnea or increased work of breathing Abdomen: soft, no tenderness, Skin: Warm, dry, no erythema, no rash. [] Extremities: No tenderness, no cyanosis, 1 area of scar tissue < 0.5cm over le ft antecubital fossa with no infection/hyperpigmented brown tissue, no IV track trevino over right antecubital fossa Neurologic: Alert and oriented X 3, normal motor function, normal sensory function, no focal deficits noted. [] Psychologic: Affect normal, judgement normal, mood normal-very talkative Current Patient Data: Labs: Laboratory Tests Test 05/23/20 00:30 White Blood Count 10.5 x10^3/uL (4.0-11.0) Red Blood Count 4.23 x10^6/uL (3.50-5.40) Hemoglobin 11.1 g/dL (12.0-15.5) L Hematocrit 34.2 % (36.0-47.0) L Mean Corpuscular Volume 81 fL (79-100) Mean Corpuscular Hemoglobin 26 pg (25-35) Mean Corpuscular Hemoglobin Concent 33 g/dL (31-37) Red Cell Distribution Width 15.5 % (11.5-14.5) H Platelet Count 363 x10^3/uL (140-400) Neutrophils (%) (Auto) 76 % (31-73) H Lymphocytes (%) (Auto) 17 % (24-48) L Monocytes (%) (Auto) 6 % (0-9) Eosinophils (%) (Auto) 1 % (0-3) Basophils (%) (Auto) 1 % (0-3) Neutrophils # (Auto) 8.0 x10^3/uL (1.8-7.7) H Lymphocytes # (Auto) 1.8 x10^3/uL (1.0-4.8) Monocytes # (Auto) 0.6 x10^3/uL (0.0-1.1) Eosinophils # (Auto) 0.0 x10^3/uL (0.0-0.7) Basophils # (Auto) 0.1 x10^3/uL (0.0-0.2) Sodium Level 139 mmol/L (136-145) Potassium Level 4.2 mmol/L (3.5-5.1) Chloride Level 102 mmol/L (98-107) Carbon Dioxide Level 30 mmol/L (21-32) Anion Gap 7 (6-14) Blood Urea Nitrogen 5 mg/dL (7-20) L Creatinine 0.8 mg/dL (0.6-1.0) Estimated GFR (Cockcroft-Gault) 100.6 BUN/Creatinine Ratio 6 (6-20) Glucose Level 98 mg/dL (70-99) Calcium Level 9.0 mg/dL (8.5-10.1) Magnesium Level 1.9 mg/dL (1.8-2.4) Total Bilirubin 0.3 mg/dL (0.2-1.0) Aspartate Amino Transferase (AST) 17 U/L (15-37) Alanine Aminotransferase (ALT) 24 U/L (14-59) Alkaline Phosphatase 69 U/L (46-116) Troponin I Quantitative < 0.017 ng/mL (0.000-0.055) Total Protein 8.4 g/dL (6.4-8.2) H Albumin 3.5 g/dL (3.4-5.0) Albumin/Globulin Ratio 0.7 (1.0-1.7) L Serum Test, Qualitative Negative (NEG) Laboratory Tests 05/23/20 00:30 Laboratory Tests 05/23/20 00:30 Vital Signs: Vital Signs Date Time Temp Pulse Resp B/P (MAP) Pulse Ox O2 Delivery O2 Flow Rate FiO2 05/23/20 00:00 98.7 94 18 139/83 (101) 99 Room Air 98.7 EKG: EKG: Sinus rhythm at 76 bpm, no axis deviation, normal intervals, no T wave inversions, no ST elevations or ST depressions Radiology/Procedures: Radiology/Procedures: IMAGING REPORT Signed PATIENT: AUGUSTUS CARTWRIGHT ACCOUNT: [id number] : 1990 LOCATION: ER AGE: 30 SEX: F EXAM STATUS: REG ER ORD. PHYSICIAN: JENNIFER KENDALL DO REASON: palpitations PROCEDURE: CHEST AP ONLY XR CHEST 1V History: Reason: palpitations / Spl. Instructions: / History: Comparison: January 10, 2019 Findings: No consolidation or pleural effusion. Normal heart size. No pneumothorax. Impression: 1. No acute cardiopulmonary process. Electronically signed by: Yobani Strauss DO (05/23/2020 12:50 AM) [facility] DICTATED and SIGNED BY: YOBANI STRAUSS DO DATE: 05/23/20 [id number] 0 Impression: PERC rule for pulmonary embolus 0 criteria No need for further workup, as <2% chance of PE. If no criteria are positive and clinicians pre-test probability is <15%, PERC Rule criteria are satisfied. Course & Med Decision Making: Course & Med Decision Making Pertinent Labs and Imaging studies reviewed. (See chart for details) Concern for palpitations in the setting of opioid/heroin abuse. Patient very talkative and is asking for outpatient referral information stating "I want a doctor that cares usually no one does." Patient PERC negative, low risk for mace, negative troponin and hemodynamically stable. No signs of infection. Will discharge home with strict ED return precautions were given for syncope, difficulties breathing, chest pressure, neurologic deficits or dyspnea. Enco uraged urgent outpatient follow-up with PMD-we will provide referral and also referral for cardiology for nonemergent outpatient evaluation. Life-threatening processes were considered but are low suspicion at this time, given history, physical exam and ED workup. Pt was educated on all prescription medications and adverse effects. All patient's questions were answered and pt was stable at time of discharge. Life/limb-threatening differential includes but is not limited to, acute myocardial infarction, aortic dissection, congestive heart failure, esophageal injury including rupture, surgical abdomen, arrhythmia, cardiomyopathy, myocarditis, pericarditis, peptic ulcer disease, pneumomediastinum, pneumonia, pneumothorax, pulmonary embolus, unstable angina, rib fracture, contusion, pericardial tamponade or effusion, traumatic injury including mediastinal hemorrhage or hematoma, or pulmonary contusion. I spoken with the patient and her caregivers. I explained the patient's condition, diagnoses and treatment plan based on the information available to me at this time. I have answered the patient and her caregiver's questions and addressed any concerns. The patient and her caregivers have a good understanding of patient's diagnosis, condition and treatment plan as can be expected at this point. Vital signs have been stable. Patient's condition is stable and appropriate for discharge from the emergency department. Patient will pursue further outpatient evaluation with primary care physician or other designated or consulting physician as outlined in the discharge instructi ons. The patient and/or caregivers are agreeable to this plan of care and follow-up instructions have been explained in detail. The patient and/or caregivers have received these instructions in written form and have expressed an understanding of the discharge instructions. The patient and/or caregivers are aware that any significant change of condition or worsening of symptoms should prompt immediate return to this or the closest emergency department or call to 911. Sony Disclaimer: Sony Disclaimer: This electronic medical record was generated, in whole or in part, using a voice recognition dictation system. Departure Departure Impression: Primary Impression: Palpitations Additional Impression: Heroin abuse Disposition: 01 DC HOME SELF CARE/HOMELESS Condition: STABLE Referrals: NO PCP (PCP) FOLLOW UP WITH FAMILY MEDICINE: Family Medicine Address: [address] [place] [address] Patient Instructions: Heroin Abuse and Withdrawal, Palpitations Additional Instructions: FOLLOW UP WITH CARDIOLOGY: For nonemergent outpatient evaluation with echocardiogram in the setting of IV drug use [facility] Address: [address] [place] [address] [employer] 06/09 crisis stabilization services [address] [place] [address] EMERGENCY DEPARTMENT GENERAL DISCHARGE INSTRUCTIONS Thank you for coming to [facility] Emergency Department (ED) today and trusting us with you care. We trust that you had a positive experience in our Emergency Department. If you wish to speak to the department management, you may call the Director at [phone]. YOUR FOLLOW UP INSTRUCTIONS ARE FOLLOWS: 1. Do you have a private Doctor? If you do not have a private doctor, please ask for a resource list of physicians or clinics that may be able to assist you with follow up care. 2. The Emergency Physicain has interpreted your x-rays. The X-Ray specialist will also review them. If there is a change in the findings, you will be notified in 48 hours when at all possible. 3. A lab test or culture has been done, your results will be reviewed and you will be notified if you need a change in treatment. ADDITIONAL INSTRUCTIONS AND INFORMATION: 1. Your care today has been supervised by a physician who is specially trained in emergency care. Many problems require more than one evaluation for a complete diagnosis and treatment. We recommend that you schedule your follow up appointment as recommended to ensure complete treatment of you illness or injury. If you are unable to obtain follow up care and continue to have a problem, or if your condition worsens, we recommend that you return to the ED. 2. We are not able to safely determine your condition over the phone nor are we able to give sound medical advice over the phone. For these safety reasons, if you call for medical advice we will ask you to come to the ED for further evaluation. 3. If you have any questions regarding these discharge instructions please call the ED at [phone]. SAFETY INFORMATION: In the interest of safety, wellness, and injury prevention; we encourage you to wear your sealbelt, if you smoke; quite smoking, and we encourage family to use a protective helmet for bicycling and other sporting events that present an increased risk for head injury. IF YOUR SYMPTOMS WORSEN OR NEW SYMPTOMS DEVELOP, OR YOU HAVE CONCERNS ABOUT YOUR CONDITION; OR IF YOUR CONDITION WORSENS WHILE YOU ARE WAITING FOR YOUR FOLLOW UP APPOINTMENT; EITHER CONTACT YOUR PRIMARY CARE DOCTOR, THE PHYSICIAN WHOSE NAME AND NUMBER YOU WERE GIVEN, OR RETURN TO THE ED IMMEDIATELY. JENNIFER KENDALL DO May 23, 2020 01:27
== END 2020-05-23 01:55 | disposition home or self-care (01) ==
LOC: ER 23:20
DX: R00.2 Palpitations (principal); F15.10 Other stimulant abuse, uncomplicated; R07.89 Other chest pain; M54.9 Dorsalgia, unspecified; F12.90 Cannabis use, unspecified, uncomplicated; Z98.890 Other specified postprocedural states; Z88.1 Allergy status to other antibiotic agents
CPT/HCPCS: 36415; 71045; 80053; 83735; 84484; 84703; 85025; 93005; 99285